=== PATIENT | male | born 1985 | race Caucasian/White ===

== ENCOUNTER → 2022-04-05 | Outpatient (CLI) | payer OTHER | LOC: M RAD 12:25 | PROVIDERS: ATTEND Physician Assistant | DX: N50.812 Left testicular pain (principal); N50.3 Cyst of epididymis ==

== ENCOUNTER → 2022-04-25 | Outpatient (CLI) | payer OTHER | LOC: M RAD 06:40 | PROVIDERS: ATTEND Physician Assistant | DX: M79.642 Pain in left hand (principal) ==

== ENCOUNTER → 2022-05-07 | Outpatient (CLI) | payer OTHER | LOC: M RAD 07:06 | PROVIDERS: ATTEND Physician Assistant | DX: M25.551 Pain in right hip (principal); M25.552 Pain in left hip; M85.652 Other cyst of bone, left thigh; S73.192A Other sprain of left hip, initial encounter; S73.191A Other sprain of right hip, initial encounter ==

== ENCOUNTER → 2022-05-09 | Outpatient (CLI) | payer OTHER | LOC: M PLAIMG 07:25 | PROVIDERS: ATTEND Physician Assistant | DX: M25.541 Pain in joints of right hand (principal); M67.813 Other specified disorders of tendon, right shoulder; M85.611 Other cyst of bone, right shoulder ==

== ENCOUNTER 2022-06-20 08:54 | Day surgery (SDC) | payer OTHER ==
[~2022-06-20] VITALS: Ht 185.4 cm; Wt 105.7 kg
[~2022-06-20 08:54] MED LIST: NS 1,000 ML IV ONE
[2022-06-20] MEDS ORDERED: LIDOCAINE 2% 100MG/5ML SDV (FOR ANES.) As Ordered ONE (09:49)
[2022-06-20] MEDS ORDERED: propofoL 200 MG/20 ML VIAL As Ordered ONE ×2 (09:49→10:30)
[2022-06-20 10:55] VITALS: BP 114/74
== END 2022-06-20 10:58 | disposition home or self-care (01) ==
LOC: M OPP 08:54
PROVIDERS: ATTEND Internal Medicine Gastroenterology
DX: D12.6 Benign neoplasm of colon, unspecified (principal); K64.4 Residual hemorrhoidal skin tags; K64.8 Other hemorrhoids; K57.30 Diverticulosis of large intestine without perforation or abscess without bleeding; K92.1 Melena

== ENCOUNTER → 2022-07-11 | Outpatient (REF) | payer OTHER | LOC: M SFHCDERM 12:23 | PROVIDERS: ATTEND Nurse Practitioner Family | DX: I78.1 Nevus, non-neoplastic (principal) ==

== ENCOUNTER → 2022-07-31 | Outpatient (CLI) | payer OTHER ==
[~2022-07-31] MED LIST changes: +**SFHN** LIDOCAINE 1% MDV 20ML VIAL ONE; +ISOVUE-300 61% 100ML VIAL ONE; -NS 1,000 ML IV ONE; +PROHANCE 279.3MG/ML 5ML VIAL ONE
== END ==
LOC: M PLAIMG 13:52
PROVIDERS: ATTEND Orthopaedic Surgery
DX: M25.312 Other instability, left shoulder (principal); M67.814 Other specified disorders of tendon, left shoulder
CPT/HCPCS: 23350; 73223; 76000; A9576; Q9967

== ENCOUNTER → 2022-08-08 | Outpatient (CLI) | payer OTHER | LOC: M PLAIMG 07:55 | PROVIDERS: ATTEND Physician Assistant | DX: M54.50 Low back pain, unspecified (principal) ==